=== PATIENT | female | born 1965 | race Caucasian/White ===

== ENCOUNTER 2021-01-01 14:03 | Emergency (ER) | payer MEDICAID, SELFPAY ==
[2021-01-01 14:12] VITALS: BP 181/101; PULSE 78; RESP 16; TEMP 36.1; O2SAT 99
--- NOTE | 2021-01-01 14:36 | ED.GENADUL_ITS ---
Discharge Plan Disposition Patient Disposition: HOME Condition: Stable Discharge Details Clinical Impression: Rash Primary Care Provider: Sohail Jones ED Provider: Orin Alvarado Home Meds and New Rx's Prescriptions: Continued sertraline 100 mg Tablet 200 mg PO DAILY RF: 0 topiramate [Topamax] 100 mg Tablet 100 mg PO DAILY RF: 0 Discontinued cephalexin 500 MG capsule 500 mg PO TID Qty: 21 RF: 0 Discharge Data Discharge Date/Time-TO BE ENTERED AT DEPARTURE: 01/01/21 15:55 Medical Decision Making Charlene Peterson is a 55-year-old woman with a history of anxiety, depression, hypertension who presented to the emergency department with itchy wounds to bilateral forearms. On exam there are several isolated ulceration, none greater than 1 cm, firm with 1 cm surrounding erythema to bilateral forearms. There is no apparent pattern to the lesions. No involvement of the mucous membranes or palms. Unclear etiology of symptoms, particularly given recurrent nature of rash. Not necessarily consistent with contact dermatitis. Possible rheumatologic condition, possible medication effect from Topamax, however this also seems somewhat unlikely. Exam/history is not consistent with Velázquez- Anthony syndrome, TEN, staph scalded skin syndrome, meningitis, sepsis. Concern for secondary cellulitis, no other acute emergent medical condition identified. I did attempt to contact patient's primary care doctor to discuss patient's presentation and ensure follow-up, however I was not called back and patient requested to be discharged and contact them herself. Plan for Keflex, outpatient follow-up. I had a lengthy discussion with Patient regarding return to emergency department precautions, home care, and importance of outpatient follow-up. Pt verbalizes understanding of the plan and is amenable. Patient discharged to home with clear plan for outpatient follow-up. All questions were answered. Disposition decision was made weighing the risks and benefits of hospitalization versus outpatient treatment, the risk for further decompensation, and the patient's wishes. Medical Records Medical records reviewed: Yes I reviewed the patient's medical records. HPI General Mode of arrival: ambulatory . Date/Time Provider Initiated Documentation: 01/01/21 14:17 . Limitations to Documentation: no limitations . Information obtained by: patient, RN notes reviewed and old records reviewed . HPI Narrative: Charlene Peterson is a 55-year-old woman with a history of anxiety, depression, hypertension presenting to emergency department with rash to bilateral arms. Patient reports that in the last few days she has developed sores to both arms. Patient reports that sores started out as blisters. She reports that they are very itchy and she has been scratching them persistently. Patient reports that skin lesions are becoming somewhat painful. She denies any rash other than to bilateral forearms, denies any sores in her mouth or on her genitals. Patient reports that she otherwise feels very well and in her usual state of health. No other pain, no fevers, no vomiting, no diarrhea, no shortness of breath, no swelling of her face or extremities, no numbness, no weakness. Patient reports that she feels otherwise well in her usual state of health. She has been eating and drinking as usual. Patient reports that she developed these itchy blisters once or twice per year over the past 2 years. She denies new food, new soaps, detergents, any other new exposures. No recent medication changes. Related Data Home Medications Medication Instructions Recorded Confirmed sertraline 200 mg PO DAILY 01/01/21 01/01/21 topiramate [Topamax] 100 mg PO DAILY 01/01/21 01/01/21 Allergies Allergy/AdvReac Type Severity Reaction Status Date / Time prochlorperazine AdvReac Severe Anaphylaxsi Unverified 01/01/21 14:15 [From Compazine] s General Stated Complaint: RashLesion RAVINDRA: 4 Review of Systems Narrative: Constitutional: denies fevers Eyes: denies eye pain ENT: denies ear pain, dental pain, sore throat Cardiovascular: denies chest pain, edema Respiratory: denies SOB, cough GI: denies abdominal pain, vomiting, diarrhea : denies flank pain MSK: denies back pain, neck pain, arthralgias, myalgias Skin: Reports rash as per HPI Neuro: denies headaches, numbness, weakness [facility] Social History Smoking/Tobacco Use Status: Current every day Tobacco Type: cigarettes Smoking risk assessment performed?: Yes Alcohol Intake: never Drug use: Occasionally Substance use type: marijuana Do you feel safe at home: Yes Do you feel safe in your relationship?: No Exam Narrative Exam Narrative: Constitutional: well and [id number], pleasant, conversing normally HENT: head atraumatic/normocephalic/normal inspection, mucous membranes moist, normal examination of the oropharynx without lesions Eyes: conjunctiva normal, sclera normal, pupils 3mm b/l Neck: no stridor, normal ROM, trachea midline Resp: normal work of breathing, speaking in full sentences Cardio: normal rate, normal rhythm Skin: warm, dry, normal color, several isolated 0.5 to 1 cm ulcerations over dorsal aspect of bilateral forearms with excoriation, some of these with approximately 1 cm of surrounding erythema. No streaking, no edema Neuro: alert, not altered, grossly non-focal, normal tone Ext: no edema, moving all extremities equally Psych: normal mood, normal affect, normal behavior Course Vital Signs Vital signs: Vital Signs Temperature 36.1 C L 01/01/21 14:12 Pulse 78 01/01/21 14:12 Respiratory Rate 16 01/01/21 14:12 Blood Pressure 181/101 H 01/01/21 14:12 Pulse Oximetry 99 01/01/21 14:12 Temperature 36.1 C L 01/01/21 14:12 Temperature Source Skin 01/01/21 14:12 Pulse 78 01/01/21 14:12 Respiratory Rate 16 01/01/21 14:12 Respiratory Effort 01/01/21 14:19 Blood Pressure 181/101 H 01/01/21 14:12 Blood Pressure Position Sitting 01/01/21 14:12 Pulse Oximetry 99 01/01/21 14:12 Oxygen Delivery Method Room Air 01/01/21 14:12 Oxygen Flow Rate 0 01/01/21 14:12 Pain Level 6 01/01/21 14:12
--- NOTE | 2021-01-01 15:43 | NUR.NOTE ---
Access called back to state pt told them she needed to go outside and let her dog out. Pt did not return to triage room. MD Alvarado aware.
== END 2021-01-01 15:55 | disposition home or self-care (01) ==
PROVIDERS: Emergency Provider Student in an Organized Health Care Education/Training Program; PCP Internal Medicine
DX: R21 Rash and other nonspecific skin eruption (principal)
CPT/HCPCS: 99283